=== PATIENT | female | born 1960 | race Caucasian/White ===

== ENCOUNTER 2018-01-27 14:30 | Emergency (ER) | payer MEDICAID ==
[~2018-01-27] VITALS: Ht 162.6 cm; Wt 110.7 kg
[2018-01-27 14:37] VITALS: BP 134/87
[2018-01-27] MEDS ORDERED: DIPHENHYDRAMINE 25 MG CAPSULE PO ONE (16:00)
[2018-01-27] MEDS ORDERED: FAMOTIDINE 20 MG TABLET PO ONE (16:00)
[2018-01-27] MEDS ORDERED: FAMOTIDINE 20 MG TABLET ONE (16:03)
[2018-01-27] MEDS ORDERED: DIPHENHYDRAMINE 50 MG CAPSULE ONE (16:03)
== END 2018-01-27 16:16 | disposition home or self-care (01) ==
LOC: ED 15:23
DX: L23.9 Allergic contact dermatitis, unspecified cause (principal); J44.9 Chronic obstructive pulmonary disease, unspecified; F17.200 Nicotine dependence, unspecified, uncomplicated
CPT/HCPCS: 99284; J7512; Q0163